=== PATIENT | male | born 1955 | race Two or more races ===

== ENCOUNTER 2021-02-16 23:44 | Emergency (ER) | payer OTHER ==
[~2021-02-16] VITALS: Ht 167.6 cm; Wt 84.1 kg
[2021-02-17 03:05] VITALS: BP 151/78
== END 2021-02-17 03:09 | disposition home or self-care (01) ==
LOC: EMS 23:44
DX: S43.004A Unspecified dislocation of right shoulder joint, initial encounter (principal); S42.291A Other displaced fracture of upper end of right humerus, initial encounter for closed fracture; S54.21XA Injury of radial nerve at forearm level, right arm, initial encounter; X50.0XXA Overexertion from strenuous movement or load, initial encounter; Y93.89 Activity, other specified; Y92.89 Other specified places as the place of occurrence of the external cause; Y99.0 Civilian activity done for income or pay
CPT/HCPCS: 23650; 99284; 73030-TC; Z7502